=== PATIENT | female | born 1945 | race Hispanic/Latino ===

== ENCOUNTER 2016-10-19 01:30 | Emergency (ER) | payer MEDICAID, MEDICARE, OTHER ==
[2016-10-19 01:34] VITALS: O2SAT 97
[2016-10-19 03:10] VITALS: BP 136/70; PULSE 68; RESP 20; TEMP 97.8
== END 2016-10-19 03:10 | disposition home or self-care (01) ==
LOC: C.ER 01:30
DX: S01.01XA Laceration without foreign body of scalp, initial encounter (principal); W10.9XXA Fall (on) (from) unspecified stairs and steps, initial encounter

== ENCOUNTER 2016-10-25 19:31 | Emergency (ER) | payer OTHER, MEDICAID ==
[2016-10-25 19:50] VITALS: RESP 20; O2SAT 98
--- NOTE | 2016-10-25 20:20 | C.PDOC ---
History Of Present Illness 71 y/o female presents to ED for staple removal from right side of scalp. Patient states nadia were placed 1 week ago. Denies headache, dizziness, drainage from site, or other complaints. Time Seen by Provider: 10/25/16 20:05 History Per: Patient History/Exam Limitations: no limitations Onset/Duration Of Symptoms: Days Current Symptoms Are (Timing): Better Recent travel outside of the [place]: No Past Medical History Reviewed: Historical Data, Nursing Documentation, Vital Signs Vital Signs: Last Vital Signs Temp 98.0 F 10/25/16 20:24 Pulse 80 10/25/16 20:24 Resp 20 10/25/16 20:24 BP 125/72 10/25/16 20:24 Pulse Ox 98 10/25/16 20:32 - Medical History PMH: Arthritis, Dementia, Peripheral Edema Family History: States: Unknown Family Hx - Social History Hx Tobacco Use: No Hx Alcohol Use: No Hx Substance Use: No - Immunization History Hx Tetanus Toxoid Vaccination: No Hx Influenza Vaccination: No Hx Pneumococcal Vaccination: No Review Of Systems Except As Marked, All Systems Reviewed And Found Negative. Constitutional: Negative for: Fever, Chills Skin: Positive for: Other (healing wound right parietal scalp). Negative for: Rash Neurological: Negative for: Weakness, Numbness, Headache, Dizziness Physical Exam - Physical Exam Appears: Non-toxic, No Acute Distress Skin: Normal Color, Warm, Dry Head: Normacephalic, Other (4 nadia visualized R parietal area, no surrounding erythema or drainage) Eye(s): bilateral: Normal Inspection Neck: Normal, Supple Neurological/Psych: Oriented x3, Normal Speech ED Course And Treatment O2 Sat by Pulse Oximetry: 98 (RA) Pulse Ox Interpretation: Normal Progress Note: [place] removed without difficulty. Patient tolerated well. Advised to follow up with PMD/clinic within 1-2 days for further evaluation. 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 - Scribe Statement The provider has reviewed the documentation as recorded by the Scribe SM All medical record entries made by the Scribe were at my direction and personally dictated by me. I have reviewed the chart and agree that the record accurately reflects my personal performance of the history, physical exam, medical decision making, and the department course for this patient. I have also personally directed, reviewed, and agree with the discharge instructions and disposition.
[2016-10-25 20:25] VITALS: BP 125/72; PULSE 80; TEMP 98
== END 2016-10-25 20:25 | disposition home or self-care (01) ==
LOC: C.ER 19:31
DX: Z48.02 Encounter for removal of sutures (principal)

== ENCOUNTER 2017-11-30 08:54 | Emergency (ER) | payer MEDICARE, MEDICAID ==
[2017-11-30 08:57] VITALS: BMI 28.9
[2017-11-30 09:06] VITALS: BP 140/79; PULSE 71; RESP 18; TEMP 97.7; O2SAT 96
--- NOTE | 2017-11-30 09:18 | C.PDOC ---
History Of Present Illness 72 y/o F c no PMHx of DM p/w L hand swelling, itchiness after being bitten by a white bug on the dorsum of the hand. Patient notes a small blister that has formed at the bite site which drained a small amount of clear fluid. She denies any pain or fever. Time Seen by Provider: 11/30/17 09:11 Chief Complaint (Nursing): Finger,Hand,&Wrist History Per: Patient History/Exam Limitations: no limitations Onset/Duration Of Symptoms: Hrs Current Symptoms Are (Timing): Still Present Recent travel outside of the [place]: No Past Medical History Reviewed: Historical Data, Nursing Documentation, Vital Signs Vital Signs: Last Vital Signs Temp 97.7 F 11/30/17 08:57 Pulse 71 11/30/17 08:57 Resp 18 11/30/17 08:57 BP 140/79 11/30/17 08:57 Pulse Ox 96 11/30/17 09:20 - Medical History PMH: Arthritis, Dementia, Peripheral Edema Family History: States: Unknown Family Hx - Social History Hx Tobacco Use: No Hx Alcohol Use: No Hx Substance Use: No - Immunization History Hx Tetanus Toxoid Vaccination: Yes Hx Influenza Vaccination: Yes Hx Pneumococcal Vaccination: Yes Review Of Systems Except As Marked, All Systems Reviewed And Found Negative. Constitutional: Negative for: Fever Respiratory: Negative for: Shortness of Breath Physical Exam - Physical Exam Additional Physical Exam Comments: Constitutional: No acute distress. Head: Normocephalic. Atraumatic. ENT: Moist mucous membranes. Cardiovascular: Regular rate. Radial pulse 2+. Musculoskeletal: L hand with diffuse edema with FROM and without tenderness or pain with movement. Skin: No streaking erythema. Single bulla on dorsum of L hand. Neurologic: Alert, no focal deficit. ED Course And Treatment O2 Sat by Pulse Oximetry: 96 (RA) Pulse Ox Interpretation: Normal Medical Decision Making Medical Decision Making: Start antibiotics, elevation, instructed to f/u with PMD [facility] in 2-3 days. Instructed patient to return to ED for worsening pain, fever, redness, or streaking. Disposition - Disposition Referrals: Shaik Duff MD [Staff Provider] - Disposition: HOME/ ROUTINE Disposition Time: 09:17 Condition: STABLE Prescriptions: Amoxicillin/Clavulanate [Augmentin 875 MG-125 MG] 1 tab PO BID #20 tab Instructions: Insect Bites and Stings Forms: [facility] ([place]ayan) - Clinical Impression Clinical Impression: Hand swelling - Scribe Statement The provider has reviewed the documentation as recorded by the Scribe Isabela Clemente All medical record entries made by the Scribe were at my direction and personally dictated by me. I have reviewed the chart and agree that the record accurately reflects my personal performance of the history, physical exam, medical decision making, and the department course for this patient. I have also personally directed, reviewed, and agree with the discharge instructions and disposition.
== END 2017-11-30 09:24 | disposition home or self-care (01) ==
LOC: C.ER 08:54
DX: M79.89 Other specified soft tissue disorders (principal)